=== PATIENT | female | born 1950 | race Caucasian/White ===

== ENCOUNTER 2017-09-05 14:00 | Emergency (ER) | payer MEDICARE, OTHER ==
[~2017-09-05] VITALS: Ht 144.8 cm; Wt 76.2 kg
[~2017-09-05 14:00] MED LIST: ALCLOMETASONE D TOP; AMOCLA875 PO; CLOBETTC; CLOBETTC TOP; DULO60 PO; FAMC500 PO; GABA300 PO; HYDACE5 PO; HYDACE5325 PO; IBUP600; LIDO700A20 TOP; LORA1 PO; Mobic15 MG PO; NAPR375 PO; OXYACE5T PO; PRAZ1 PO; Prednisone20 MG PO; RXHYD5325 PO; RXONDA4ODT MM; Roxicodone5 MG PO; Simvastatin20 MG PO
[2017-09-05] MEDS ORDERED: LORA.5 PO (14:36)
[2017-09-05] MEDS ORDERED: LAMO25 PO (14:36)
[2017-09-05] MEDS ORDERED: Percocet 5-3251 EACH PO (15:05)
[2017-11-12] MEDS ORDERED: Simvastatin20 MG (12:26)
[2017-11-12] MEDS ORDERED: ROPI2 (12:26)
[2017-11-12] MEDS ORDERED: MORPHINE SULFA100 MG (12:27)
[2017-11-12] MEDS ORDERED: Oxycodone-Apap1 EAC3 (12:28)
[2017-11-12] MEDS ORDERED: Aspir 8181 MG (12:29)
== END 2017-09-05 15:13 | disposition home or self-care (01) ==
LOC: ER 14:00
DX: M54.2 Cervicalgia (principal); Z88.8 Allergy status to other drugs, medicaments and biological substances; Z91.048 Other nonmedicinal substance allergy status; Z79.899 Other long term (current) drug therapy; Z90.89 Acquired absence of other organs; X58.XXXA Exposure to other specified factors, initial encounter
CPT/HCPCS: 99283

== ENCOUNTER 2017-11-19 08:15 | Day surgery (SDC) | payer MEDICARE, OTHER ==
[~2017-11-19] VITALS: Ht 144.8 cm; Wt 73.9 kg
[~2017-11-19 08:15] MED LIST changes: +Aspir 8181 MG; +LAMO25 PO; +LORA.5 PO; +MORPHINE SULFA100 MG; +Oxycodone-Apap1 EAC3; +Percocet 5-3251 EACH PO; +ROPI2; +Simvastatin20 MG
[2017-11-19] MEDS ORDERED: MORPHINE SULFAT10 MG (09:00)
== END 2017-11-19 11:14 | disposition home or self-care (01) ==
LOC: ORSCSDS 08:15
PROVIDERS: Internal Medicine Gastroenterology
PROC: 0DBL8ZX Excision of Transverse Colon, Via Natural or Artificial Opening Endoscopic, Diagnostic (ICD-10-PCS; principal; 2017-11-19 09:45)
PROC: 0DBP8ZX Excision of Rectum, Via Natural or Artificial Opening Endoscopic, Diagnostic (ICD-10-PCS; principal; 2017-11-19 09:45)
PROC: 0DBM8ZX Excision of Descending Colon, Via Natural or Artificial Opening Endoscopic, Diagnostic (ICD-10-PCS; principal; 2017-11-19 09:45)
DX: Z12.11 Encounter for screening for malignant neoplasm of colon (principal); D12.4 Benign neoplasm of descending colon; K63.5 Polyp of colon; K62.1 Rectal polyp; K64.4 Residual hemorrhoidal skin tags; K57.30 Diverticulosis of large intestine without perforation or abscess without bleeding; Z86.010 Personal history of colon polyps; G47.33 Obstructive sleep apnea (adult) (pediatric); Z86.73 Personal history of transient ischemic attack (TIA), and cerebral infarction without residual deficits; F41.9 Anxiety disorder, unspecified; E78.5 Hyperlipidemia, unspecified; E66.9 Obesity, unspecified; Z68.35 Body mass index [BMI] 35.0-35.9, adult; Z79.899 Other long term (current) drug therapy; Z79.82 Long term (current) use of aspirin
CPT/HCPCS: 88305; J7120

== ENCOUNTER 2019-08-09 06:54 | Day surgery (SDC) | payer MEDICARE, OTHER ==
[~2019-08-09] VITALS: Ht 144.8 cm; Wt 71.7 kg
[~2019-08-09 06:54] MED LIST changes: +ALBU90OI INH; +ALEN70 PO; +ATORVASTATIN CA40 MG PO; +Aspirin EC81 MG PO; +CARB100ER PO; +Cymbalta20 MG PO; +Desyrel150 MG PO; +IBUP800 PO; +MORPHINE SULFAT10 MG; +OMEPRAZOLE20 MG PO; +PRAMIPEXOLE DI0.5 MG PO; +PREG25 PO; +PROP10 PO; +Percocet 10-321 EACH PO; +Tizanidine HCl2 MG PO; +ZOFRAN4 MG PO
[2019-08-09] MEDS ORDERED: ZOCOR20 MG PO (07:58)
[2019-08-09] MEDS ORDERED: HYDROCODONE-AC1 EAC1 PO (08:04)
[2019-08-09] MEDS ORDERED: PROM25 PO (08:04)
== END 2019-08-09 11:45 | disposition home or self-care (01) ==
LOC: ORSCSDS 06:54
PROVIDERS: Otolaryngology
PROC: 0GTK0ZZ Resection of Thyroid Gland, Open Approach (ICD-10-PCS; principal; 2019-08-09 08:15)
PROC: 0GBJ0ZZ Excision of Thyroid Gland Isthmus, Open Approach (ICD-10-PCS; principal; 2019-08-09 08:15)
DX: E04.1 Nontoxic single thyroid nodule (principal); G47.33 Obstructive sleep apnea (adult) (pediatric); Z79.899 Other long term (current) drug therapy; Z79.82 Long term (current) use of aspirin
CPT/HCPCS: 88305; 88307; J1100; J2250; J2405; J2704; J3010; J7120

== ENCOUNTER → 2019-12-05 | Outpatient (CLI) | payer MEDICARE, OTHER ==
[~2019-12-05] MED LIST changes: +HYDROCODONE-AC1 EAC1 PO; +PROM25 PO; +ZOCOR20 MG PO
== END ==
LOC: LAB 15:51 → LAB SHORT 15:51
DX: N39.0 Urinary tract infection, site not specified (principal)
CPT/HCPCS: 87077; 87086; 87186

== ENCOUNTER → 2019-12-29 | Outpatient (CLI) | payer MEDICARE, OTHER | END | disposition home or self-care (01) | LOC: LAB SHORT 15:30 → LAB 15:30 | DX: R10.2 Pelvic and perineal pain (principal); R35.0 Frequency of micturition | CPT/HCPCS: 87086 ==

== ENCOUNTER → 2020-01-03 | Outpatient (CLI) | payer MEDICARE, OTHER | LOC: LAB SHORT 16:15 → LAB 16:15 | DX: N39.0 Urinary tract infection, site not specified (principal) | CPT/HCPCS: 87086 ==

== ENCOUNTER → 2020-05-02 | Outpatient (CLI) | payer MEDICARE, OTHER | END | disposition home or self-care (01) | LOC: LAB 15:15 → LAB SHORT 15:15 | DX: R35.0 Frequency of micturition (principal) | CPT/HCPCS: 87086 ==

== ENCOUNTER 2021-09-02 08:09 | Day surgery (SDC) | payer MEDICARE, OTHER ==
[~2021-09-02] VITALS: Ht 144.8 cm; Wt 73.5 kg
--- NOTE | 2021-09-02 09:35 | NUR ---
09/02/21 0935 Gaye Howe HIGH FIBER DIET AND DIVERTICULOSIS PAMPHLET GIVEN TO PT PER MD HILLMAN.
== END 2021-09-02 09:35 | disposition home or self-care (01) ==
LOC: ORSCSDS 08:09
PROVIDERS: Internal Medicine Gastroenterology
PROC: 0DBL8ZX Excision of Transverse Colon, Via Natural or Artificial Opening Endoscopic, Diagnostic (ICD-10-PCS; principal; 2021-09-02 10:15)
DX: Z12.11 Encounter for screening for malignant neoplasm of colon (principal); Z86.010 Personal history of colon polyps; D12.3 Benign neoplasm of transverse colon; G47.33 Obstructive sleep apnea (adult) (pediatric); K21.9 Gastro-esophageal reflux disease without esophagitis; K57.30 Diverticulosis of large intestine without perforation or abscess without bleeding; I63.9 Cerebral infarction, unspecified; E66.9 Obesity, unspecified; Z68.35 Body mass index [BMI] 35.0-35.9, adult; Z79.82 Long term (current) use of aspirin; Z79.899 Other long term (current) drug therapy
CPT/HCPCS: 88305; J2704; J7120

== ENCOUNTER 2022-03-17 08:06 | Day surgery (SDC) | payer MEDICARE, OTHER | END 2022-03-17 23:59 | disposition home or self-care (01) | LOC: WOUND 08:06 | DX: S31.109A Unspecified open wound of abdominal wall, unspecified quadrant without penetration into peritoneal cavity, initial encounter (principal); X58.XXXA Exposure to other specified factors, initial encounter | CPT/HCPCS: G0463 ==

== ENCOUNTER 2022-07-03 12:18 | Day surgery (SDC) | payer MEDICARE, OTHER ==
[~2022-07-03] VITALS: Ht 144.8 cm; Wt 73.2 kg
[2022-07-03] MEDS ORDERED: TRAZ50 PO (12:58)
[2022-07-03] MEDS ORDERED: LEVSOD100 PO (12:58)
--- NOTE | 2022-07-03 15:20 | NUR ---
07/03/22 1520 ALISHA LOU 0.15MG OF EPI ADDED TO 30MLS OF ROPIVACAINE 0.5% TO CREATE A LOCAL SOLUTION OF ROPIVACAINE 0.5% WITH EPI 1:200,000. LOCAL POURED ONTO STERILE FIELD FOR USE DURING CASE.
== END 2022-07-03 16:18 | disposition home or self-care (01) ==
LOC: ORSCSDS 12:18
PROVIDERS: Podiatrist Foot & Ankle Surgery
PROC: 0J8R0ZZ Division of Left Foot Subcutaneous Tissue and Fascia, Open Approach (ICD-10-PCS; principal; 2022-07-03 13:45)
DX: M72.2 Plantar fascial fibromatosis (principal); M76.62 Achilles tendinitis, left leg; M24.572 Contracture, left ankle; R60.0 Localized edema; I10 Essential (primary) hypertension; G47.33 Obstructive sleep apnea (adult) (pediatric); E78.5 Hyperlipidemia, unspecified; K58.9 Irritable bowel syndrome, unspecified; E66.9 Obesity, unspecified; Z68.34 Body mass index [BMI] 34.0-34.9, adult; Z79.82 Long term (current) use of aspirin; Z79.899 Other long term (current) drug therapy
CPT/HCPCS: J0171; J0690; J1100; J1885; J2250; J2405; J2704; J2795; J3010

== ENCOUNTER 2025-04-20 08:52 | Day surgery (SDC) | payer OTHER ==
[~2025-04-20] VITALS: Ht 144.8 cm; Wt 66.0 kg
[~2025-04-20 08:52] MED LIST changes: +LEVSOD100 PO; +SYNTHROID100 M14 PO; +TRAZ50 PO
[2025-04-20] MEDS ORDERED: EUTHYROX88 MC1 (09:40)
[2025-04-20] MEDS ORDERED: Prozac20 MG (09:41)
[2025-04-20] MEDS ORDERED: PRAVASTATIN SOD40 MG (09:41)
[2025-04-20] MEDS ORDERED: NYSTOP15 GM (09:41)
[2025-04-20] MEDS ORDERED: VITAMIN D350 MC3 (09:42)
[2025-04-20] MEDS ORDERED: Calcium Ascorb500 MG (09:43)
[2025-04-20 11:45] VITALS: BP 137/67
== END 2025-04-20 11:45 | disposition home or self-care (01) ==
LOC: ORSCSDS 08:52
PROVIDERS: Internal Medicine Gastroenterology
PROC: 0DBK8ZX Excision of Ascending Colon, Via Natural or Artificial Opening Endoscopic, Diagnostic (ICD-10-PCS; principal; 2025-04-20 10:30)
PROC: 0DBN8ZX Excision of Sigmoid Colon, Via Natural or Artificial Opening Endoscopic, Diagnostic (ICD-10-PCS; principal; 2025-04-20 10:30)
PROC: 0DBH8ZX Excision of Cecum, Via Natural or Artificial Opening Endoscopic, Diagnostic (ICD-10-PCS; principal; 2025-04-20 10:30)
DX: Z12.11 Encounter for screening for malignant neoplasm of colon (principal); D12.0 Benign neoplasm of cecum; D12.2 Benign neoplasm of ascending colon; D12.5 Benign neoplasm of sigmoid colon; K57.30 Diverticulosis of large intestine without perforation or abscess without bleeding; K64.4 Residual hemorrhoidal skin tags; Z86.0101 Personal history of adenomatous and serrated colon polyps; E03.9 Hypothyroidism, unspecified; G47.33 Obstructive sleep apnea (adult) (pediatric); Z79.899 Other long term (current) drug therapy
CPT/HCPCS: 88305; J2704; J7120

== ENCOUNTER → 2025-05-25 | Outpatient (CLI) | payer MEDICARE, OTHER ==
[~2025-05-25] MED LIST changes: +Calcium Ascorb500 MG; +EUTHYROX88 MC1; +NYSTOP15 GM; +PRAVASTATIN SOD40 MG; +Prozac20 MG; +VITAMIN D350 MC3
[2025-05-28 20:49] LABS: Campylobacter Sp Not Detected (NOT DETECT); E. Coli O157 Not Detected (NOT DETECT); Enteroaggregative E. coli-EAEC Not Detected (NOT DETECT); Enteropathogenic E. coli-EPEC Not Detected (NOT DETECT); Enterotoxigenic E. coli-ETEC Not Detected (NOT DETECT); Salmonella Sp Not Detected (NOT DETECT); Shiga Toxin-prod E. coli-STEC Not Detected (NOT DETECT); Shigella/Enteroin E. coli-EIEC Not Detected (NOT DETECT); Vibrio Sp Not Detected (NOT DETECT)
== END | disposition home or self-care (01) ==
LOC: LAB 16:42 → LAB SHORT 16:42
PROVIDERS: Physician Assistant
DX: R19.7 Diarrhea, unspecified (principal)
CPT/HCPCS: 87507

== ENCOUNTER 2025-06-02 13:49 | Emergency (ER) | payer MEDICARE, OTHER ==
[~2025-06-02] VITALS: Ht 144.8 cm; Wt 69.0 kg
[2025-06-02 14:10] LABS: Source, Urine Clean Catch
[2025-06-02 14:17] LABS: Bilirubin, Urine Neg (Neg); Color, Urine Yellow (P-Yellow); Glucose Qualitative, Urine Neg (Neg); Ketones, Urine Neg (Neg); Leukocyte Esterase, Urine 2+ (Neg); Protein, Urine Neg (Neg); Specific Gravity, Urine 1.010 (1.003-1.022); Urobilinogen, Urine NORM (Normal)
[2025-06-02 14:22] LABS: BASOPHILS ABSOLUTE AUTO 0.04 K/mm3 (0.00-0.23); BASOPHILS PERCENT AUTO 1 % (0-2); EOSINOPHILS ABSOLUTE AUTO 0.04 K/mm3 (0.00-0.68); EOSINOPHILS PERCENT AUTO 1 % (0-6); Hematocrit 41.3 % (33.0-51.0); Hemoglobin 14.3 g/dL (11.5-16.0); IMMATURE GRAN ABSOLUTE AUTO 0.02 K/mm3 (0.00-0.10); IMMATURE GRAN PERCENT AUTO 0 % (0-1); LYMPHOCYTES ABSOLUTE AUTO 2.18 K/mm3 (0.84-5.20); LYMPHOCYTES PERCENT AUTO 31 % (21-46); MONOCYTES ABSOLUTE AUTO 0.51 K/mm3 (0.16-1.47); MONOCYTES PERCENT AUTO 7 % (4-13); Mean Corpuscular HGB Conc 34.6 g/dL (31.5-36.5); Mean Corpuscular Volume 90 fL (80-100); NEUTROPHILS ABSOLUTE AUTO 4.35 K/mm3 (1.96-9.15); NEUTROPHILS PERCENT AUTO 61 % (41-73); NRBC ABSOLUTE 0.00 K/mm3 (0.00-0.02); NRBC Auto 0.0 /100 WBC (0.0-0.2); Platelet Count 205 K/mm3 (150-400); RDW Coefficient Variation 12.4 % (11.7-14.2); RDW Standard Deviation 40.6 fL (35.1-46.3)
[2025-06-02 14:47] LABS: Alanine Aminotransfer (ALT/SGP 32.0 U/L (12-78); Albumin, Blood 4.2 g/dL (3.4-5.0); Albumin/Globulin Ratio 1.3 (0.8-1.8); Anion Gap 5.0 mmol/L (3-11); Aspartate Aminotrans (AST/SGOT 28.0 U/L (12-37); Bilirubin, Total 0.5 mg/dL (0.1-1.0); Blood Urea Nitrogen 21.0 mg/dL (8-24); CO2, Blood 29.0 mmol/L (21-32); Calcium, Blood 8.8 mg/dL (8.5-10.1); Chloride, Blood 106.0 mmol/L (98-108); Creatinine, Blood 0.7 mg/dL (0.40-1.00); Globulin, Blood 3.2 g/dL (2.2-4.0); Glucose, Blood 100.0 mg/dL (70-99); Potassium, Blood 3.8 mmol/L (3.5-5.5); Sodium, Blood 136.0 mmol/L (136-145); Total Protein, Blood 7.4 g/dL (6.4-8.2)
[2025-06-02 17:15] VITALS: BP 136/64
[2025-06-02] MEDS ORDERED: DRAMAMINE25 M1 PO (17:28)
[2025-06-02] MEDS ORDERED: PSEU120ER PO (17:54)
== END 2025-06-02 17:58 | disposition home or self-care (01) ==
LOC: ER 13:49
PROVIDERS: Physician Assistant
DX: R42 Dizziness and giddiness (principal); Z79.899 Other long term (current) drug therapy; Z88.1 Allergy status to other antibiotic agents; Z88.8 Allergy status to other drugs, medicaments and biological substances
CPT/HCPCS: 70450; 80053; 81001; 85025; 87077; 87086; 87186; 93005; 93010; 99284-25; A9270